=== PATIENT | female | born 1990 | race African-American/Black ===

== ENCOUNTER 2016-06-08 23:59 | Emergency (ER) | payer OTHER ==
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
[~2016-06-08 23:59] MED LIST: AMOXICILLIN PO; BACTRIM DS TABL1 TAB PO; PYRIDIUM PO
== END 2016-06-09 02:55 | disposition home or self-care (01) ==
LOC: CFTX 23:59
DX: S16.1XXA Strain of muscle, fascia and tendon at neck level, initial encounter (principal); S80.01XA Contusion of right knee, initial encounter; F17.200 Nicotine dependence, unspecified, uncomplicated; V49.40XA Driver injured in collision with unspecified motor vehicles in traffic accident, initial encounter; Y93.89 Activity, other specified; Y92.410 Unspecified street and highway as the place of occurrence of the external cause
CPT/HCPCS: 29530; 70450; 72040; 73562; 84703; 96372; 99284; J1885